=== PATIENT | female | born 1960 | race Caucasian/White ===

== ENCOUNTER 2018-10-03 23:15 | Emergency (ER) | payer MEDICAID ==
[~2018-10-03] VITALS: Ht 160 cm; Wt 99.8 kg
--- OUTSIDE RECORDS SUMMARY | 2018-10-03 23:21 | XMS REPORT ---
Author Author Migration, Doctor Organization [facility] Address Unknown Phone Unavailable Care Team Providers Care Treating Machine Operator Name Role Phone Migration, Doctor Unavailable Unavailable PROBLEMS Type Condition ICD9-CM Code PRB89-TJ Code Onset Dates Condition Status SNOMED Code Problem Other and unspecified hyperlipidemia E78.5 Active 04216024 Problem Obesity E66.9 Active 079284522 ALLERGIES No Information ENCOUNTERS Encounter Location Date Diagnosis [address] [address] August, [address] [address] Jun, [address] [address] Jun, [address] [address] Jun, [facility] [address] [place] [address] May, [facility] WALK IN [facility] [address] [place] [address] May, Cervicalgia M54.2 and BMI 40.0-44.9, adult Z68.41 [place] [address] [place] [address] Jul, [facility] [id number] [place] [address] Jul, [facility] [id number] [place] [address] Sep, [facility] [id number] [place] [address] Sep, [facility] [address] [address] Sep, [facility] [place] [facility] [address] [id number] [place] [address] Sep, [facility] [place] [facility] [address] [id number] [place] [address] Sep, [facility] [place] [facility] [address] [id number] [place] [address] Sep, [facility] [place] [facility] [address] [id number] [place] [address] Sep, [facility] [place] [facility] [address] [id number] [place] [address] Sep, [facility] [place] [facility] [address] [id number] [place] [address] Sep, [facility] [place] [facility] [address] [id number] [place] [address] Sep, [facility] [place] [facility] [address] [id number] [place] [address] Sep, [facility] [place] [facility] [address] [id number] [place] [address] Sep, [facility] [place] [facility] [address] [id number] [place] [address] Sep, [facility] [place] [facility] [address] [id number] [place] [address] Oct, [facility] [place] [facility] [address] [id number] [place] [address] Jul, [facility] [place] [facility] [address] [id number] [place] [address] 18 Jul, 2012 [facility] [place] [facility] [address] [id number] [place] [address] 17 Jul, 2012 [facility] [place] [facility] [address] [id number] [place] [address] 16 Jul, 2012 [facility] [place] [facility] [address] [id number] [place] [address] Jul, [facility] [address] [facility] [id number] [place] [address] Jul, [facility] [address] [facility] [id number] [place] [address] Jul, [facility] [address] [facility] [id number] [place] [address] Nov, IMMUNIZATIONS No Known Immunizations SOCIAL HISTORY Never Assessed REASON FOR VISIT [facility] PLAN OF CARE VITAL SIGNS MEDICATIONS Unknown Medications RESULTS No Results PROCEDURES No Known procedures INSTRUCTIONS MEDICATIONS ADMINISTERED No Known Medications MEDICAL (GENERAL) HISTORY Type Description Date Medical History colonic polyps Medical History hypertension Medical History retinal tear Surgical History hysterectomy 2016 Surgical History cholecystectomy 2016 Surgical History eye
--- OUTSIDE RECORDS SUMMARY | 2018-10-03 23:21 | XMS REPORT ---
Author Author SINA MEADE Organization [facility] Address [address] [place] [address] Care Team Providers Care Breaker Up Name Role Phone SINA MEADE Unavailable PROBLEMS Type Condition ICD9-CM Code CPL54-UU Code Onset Dates Condition Status SNOMED Code Problem Other and unspecified hyperlipidemia E78.5 Active 13810877 Problem Obesity E66.9 Active 491306720 ALLERGIES No Information ENCOUNTERS Encounter Location Date Diagnosis [address] [address] August, [address] [address] Jun, [address] [address] Jun, [address] [address] Jun, [facility] [address] [place] [address] May, [facility] [address] [place] [address] May, Cervicalgia M54.2 and BMI 40.0-44.9, adult Z68.41 [place] [address] [address] Jul, [facility] [address], [place] [address] Jul, [place] [address] [address] Sep, [facility] [address], [place] [address] Sep, [facility] [place] [facility] [address] [id number] [place] [address] Sep, [facility] [place] [facility] [address] [id number] [place] [address] Sep, [facility] [place] [facility] [address] [id number] [place] [address] Sep, [facility] [place] [facility] [address] [id number] [place] [address] Sep, [facility] [place] [facility] [address] [id number] [place] [address] Sep, [facility] [place] [facility] [address] [id number] [place] [address] Sep, [facility] [place] [facility] [address] [id number] [place] [address] Sep, [facility] [place] [facility] [address] [id number] [place] [address] Sep, [facility] [place] [facility] [address] [id number] [place] [address] Sep, [facility] [place] [facility] [address] [id number] [place] [address] Sep, [facility] [place] [facility] [address] [id number] [place] [address] Sep, [facility] [place] [facility] [address] [id number] [place] [address] Oct, [facility] [place] [facility] [address] [id number] [place] [address] 23 Jul, 2012 [facility] [place] [facility] [address] [id number] [place] [address] 18 Jul, 2012 [facility] [place] [facility] [address] [id number] [place] [address] 17 Jul, 2012 [facility] [place] [facility] [address] [id number] [place] [address] Jul, [facility] [address] [facility] [id number] [address] Jul, [facility] [address] [facility] [id number] [address] Jul, [facility] [address] [facility] [id number] [address] Jul, [facility] [address] [facility] [id number], [place] [address] Nov, IMMUNIZATIONS No Known Immunizations SOCIAL HISTORY Never Assessed REASON FOR VISIT PLAN OF CARE VITAL SIGNS MEDICATIONS Medication Instructions Dosage Frequency Start Date End Date Duration Status Diclofenac Sodium 75 MG Orally Twice a day 1 tablet with food or milk 12h Jun, 30 day(s) Active RESULTS No Results PROCEDURES No Known procedures INSTRUCTIONS MEDICATIONS ADMINISTERED No Known Medications MEDICAL (GENERAL) HISTORY Type Description Date Medical History colonic polyps Medical History hypertension Medical History retinal tear Surgical History hysterectomy 2016 Surgical History cholecystectomy 2016 Surgical History eye
--- OUTSIDE RECORDS SUMMARY | 2018-10-03 23:21 | XMS REPORT | Continuity of Care Document ---
Author Organization Unknown Address Unknown Allergies Active Description Code Type Severity Reaction Onset Reported/Identified Relationship to Patient Clinical Status Yes Prozac Drug Allergy 12/04/2011 Yes Prozac Drug Allergy N/A N/A 12/04/2011 Medications There is no data. Problems Date Dx Coded Attending Type Code Diagnosis Diagnosed By 12/04/2011 JACQUES JOHNSON DO 380.10 INFECTIVE OTITIS EXTERNA UNSPECIFIED 12/04/2011 JIGNA MADERA APRN 380.10 INFECTIVE OTITIS EXTERNA UNSPECIFIED 12/04/2011 JIGNA MADERA APRN 380.10 INFECTIVE OTITIS EXTERNA UNSPECIFIED 12/04/2011 JACQUES JOHNSON DO 380.10 INFECTIVE OTITIS EXTERNA UNSPECIFIED 08/05/2012 JACQUES JOHNSON DO 719.46 PAIN IN JOINT INVOLVING LOWER LEG 08/05/2012 JACQUES JOHNSON DO 724.2 LUMBAGO 08/05/2012 JIGNA MADERA APRN A 719.46 PAIN IN JOINT INVOLVING LOWER LEG 08/05/2012 JIGNA MADERA APRN A 724.2 LUMBAGO 08/05/2012 JIGNA MADERA APRN A 719.46 PAIN IN JOINT INVOLVING LOWER LEG 08/05/2012 JIGNA MADERA APRN A 724.2 LUMBAGO 08/05/2012 JACQUES JOHNSON DO 719.46 PAIN IN JOINT INVOLVING LOWER LEG 08/05/2012 JACQUES JOHNSON DO 724.2 LUMBAGO 08/08/2012 JIGNA MADERA APRN A 278.00 OBESITY 08/08/2012 JIGNA MADERA APRN A V73.81 HPV SCREENING 08/08/2012 JIGNA MADERA APRN A V76.10 BREAST CANCER SCREENING 08/08/2012 JIGNA MADERA APRN A V76.2 CERVICAL CANCER SCREENING (PAP SMEAR) 08/08/2012 JIGNA MADERA APRN A 278.00 OBESITY 08/08/2012 SABINE MADERA APRNIDI A V73.81 HPV SCREENING 08/08/2012 SABINE MADERA APRNIDI A V76.10 BREAST CANCER SCREENING 08/08/2012 SABINE MADERA APRNIDI A V76.2 CERVICAL CANCER SCREENING (PAP SMEAR) 08/08/2012 JACQUES JOHNSON DO K 278.00 OBESITY 08/08/2012 JACQUES JOHNSON DO K V73.81 HPV SCREENING 08/08/2012 JACQUES JOHNSON DO K V76.10 BREAST CANCER SCREENING 08/08/2012 DESIRE JOHNSON DOA K V76.2 CERVICAL CANCER SCREENING (PAP SMEAR) 11/27/2012 SANTY SWEENEY JIGNA A 789.03 ABDOMINAL PAIN RIGHT LOWER QUADRANT 11/27/2012 JACQUES JOHNSON DO K 789.03 ABDOMINAL PAIN RIGHT LOWER QUADRANT 10/09/2013 SANTY STEPHENSFelton JIGNA A 112.3 CANDIDIASIS OF SKIN AND NAILS 10/09/2013 SANTY STEPHENSFelton JIGNA A 788.39 OTHER URINARY INCONTINENCE 10/09/2013 SANTY SWEENEY JIGNA A V65.49 OTHER SPECIFIED COUNSELING 10/09/2013 SANTY SWEENEY JIGNA A V72.31 NUCLEAR WORKER TECHNICIAN EXAM, ROUTINE 10/09/2013 JACQUES JOHNSON DO K 112.3 CANDIDIASIS OF SKIN AND NAILS 10/09/2013 JACQUES JOHNSON DO K 788.39 OTHER URINARY INCONTINENCE 10/09/2013 DESIRE JOHNSON DOA K V65.49 OTHER SPECIFIED COUNSELING 10/09/2013 JACQUES JOHNSON DO K V72.31 NUCLEAR WORKER TECHNICIAN EXAM, ROUTINE 10/17/2013 JACQUES JOHNSON DO 272.4 DYSLIPIDEMIA 10/17/2013 JACQUES JOHNSON DO 729.5 PAIN IN LIMB 10/17/2013 JACQUES JOHNSON DO 782.1 RASH 10/17/2013 JACQUES JOHNSON DO K 789.00 ABDOMINAL PAIN UNSPECIFIED SITE 10/17/2013 JACQUES JOHNSON DO 924.3 CONTUSION OF TOE 10/17/2013 JACQUES JOHNSON DO V18.0 FAMILY HISTORY OF DIABETES MELLITUS 10/17/2013 DESIRE JOHNSON DOA K V70.0 ROUTINE GENERAL MEDICAL EXAMINATION AT A HEALTH CARE FACILITY Procedures Code [place] [address] MAMMOGRAM, SCREENING 08/08/2012 74983 PAP SMEAR 08/08/2012 Q0091 PAP SMEAR OBTAIN SMEAR 08/08/2012 76215 MAMMOGRAM, SCREENING 10/10/2013 57071 ROUTINE VENIPUNCTURE 10/17/2013 86294 A1C (IN-HOUSE) 10/17/2013 58656 CMP 10/17/2013 18228 URIC ACID 10/17/2013 4683851 GFR CALC (RESULT ONLY) 10/17/2013 57210 TSH 10/17/2013 99723 ROUTINE VENIPUNCTURE 10/20/2013 37450 LIPID PANEL 10/20/2013 Results Test Result Range LIPID PANEL - 08/28/18 11:54 CHOLESTEROL, TOTAL 182 mg/dL <200 HDL CHOLESTEROL 47 mg/dL >50 TRIGLYCERIDES 168 mg/dL <150 LDL-CHOLESTEROL 107 mg/dL (calc) NRG CHOL/HDLC RATIO 3.9 (calc) <5.0 NON HDL CHOLESTEROL 135 mg/dL (calc) <130 CMP - 08/28/18 11:54 GLUCOSE 88 mg/dL 65-99 UREA NITROGEN (BUN) 16 mg/dL 7-25 CREATININE 0.87 mg/dL 0.50-1.05 eGFR NON-AFR. CENTRAL AFRICAN 75 mL/min/1.73m2 > OR=60 eGFR 87 mL/min/1.73m2 > OR=60 BUN/CREATININE RATIO NOT APPLICABLE (calc) 6-22 SODIUM 139 mmol/L 135-146 POTASSIUM 3.8 mmol/L 3.5-5.3 CHLORIDE 103 mmol/L 98-110 CARBON DIOXIDE 28 mmol/L 20-32 CALCIUM 9.6 mg/dL 8.6-10.4 PROTEIN, TOTAL 6.6 g/dL 6.1-8.1 ALBUMIN 4.3 g/dL 3.6-5.1 GLOBULIN 2.3 g/dL (calc) 1.9-3.7 ALBUMIN/GLOBULIN RATIO 1.9 (calc) 1.0-2.5 BILIRUBIN, TOTAL 0.5 mg/dL 0.2-1.2 ALKALINE PHOSPHATASE 63 U/L 33-130 AST 16 U/L 10-35 ALT 14 U/L 6-29 Encounters ACCT No. Visit Date/Time Discharge Status Pt. Type Provider Facility Loc./Unit Complaint [id number] 08/28/2018 11:15:00 08/28/2018 23:59:59 [facility] Outpatient SINA MEADE [facility] [id number] 08/28/2018 11:15:00 Document Registration [id number] 10/20/2013 10:26:00 10/20/2013 23:59:59 [facility] Outpatient JACQUES JOHNSON DO [id number] 10/09/2013 14:42:00 10/09/2013 23:59:59 [facility] Outpatient JIGNA MADERA APRN [id number] 08/08/2012 10:24:00 08/08/2012 23:59:59 [facility] Outpatient JIGNA MADERA APRN [id number] 08/05/2012 10:28:00 08/05/2012 23:59:59 CLS Outpatient JACQUES JOHNSON DO
--- OUTSIDE RECORDS SUMMARY | 2018-10-03 23:21 | XMS REPORT ---
Author Author SINA MEADE Organization [facility] Address [address] [place] [address] Care Team Providers Care State Appellate Clerk Name Role Phone SINA MEADE Unavailable PROBLEMS Type Condition ICD9-CM Code DLN19-VK Code Onset Dates Condition Status SNOMED Code Problem Other and unspecified hyperlipidemia E78.5 Active 34773775 Problem Obesity E66.9 Active 669644506 ALLERGIES No Information ENCOUNTERS Encounter Location Date Diagnosis [address] [address] August, [address] [address] Jun, [address] [address] Jun, [address] [address] Jun, [facility] [address] [place] [address] May, [facility] WALK IN [facility] [address] [place] [address] May, Cervicalgia M54.2 and BMI 40.0-44.9, adult Z68.41 [place] [address] [address] Jul, [facility] [address] [address] Jul, [place] [address] [address] Sep, [facility] [address] [address] Sep, [facility] [place] [facility] [address] [id number] [place] [address] Sep, [facility] [place] [facility] [address] [id number] [place] [address] Sep, [facility] [place] [facility] [address] [id number] [place] [address] Sep, [facility] [place] [facility] [address] [id number] [place] [address] Sep, [facility] [place] [facility] [address] [id number] [place] [address] Sep, [facility] [place] [facility] [address] [id number] [place] [address] Sep, [facility] [place] [facility] [address] [id number] [place] [address] Sep, [facility] [place] [facility] [address] [id number] [place] [address] Sep, [facility] [place] [facility] [address] [id number] [place] [address] Sep, [facility] [place] [facility] [address] [id number] [place] [address] Sep, [facility] [place] [facility] [address] [id number] [place] [address] Sep, [facility] [place] [facility] [address] [id number] [place] [address] Oct, [facility] [place] [facility] [address] [id number] [place] [address] 23 Jul, 2012 [facility] [place] [facility] [address] [id number] [place] [address] 18 Jul, 2012 [facility] [place] [facility] [address] [id number] [place] [address] 17 Jul, 2012 [facility] [place] [facility] [address] [id number] [place] [address] Jul, [facility] [address] [facility] [id number] [address] Jul, [facility] [address] [facility] [id number] [place] [address] Jul, [facility] [address] [facility] [id number] [address] Jul, [facility] [address] [facility] [id number] [place] [address] Nov, IMMUNIZATIONS No Known Immunizations SOCIAL HISTORY Never Assessed REASON FOR VISIT Returning Your Call PLAN OF CARE VITAL SIGNS MEDICATIONS Unknown Medications RESULTS No Results PROCEDURES No Known procedures INSTRUCTIONS MEDICATIONS ADMINISTERED No Known Medications MEDICAL (GENERAL) HISTORY Type Description Date Medical History colonic polyps Medical History hypertension Medical History retinal tear Surgical History hysterectomy 2016 Surgical History cholecystectomy 2016 Surgical History eye
--- OUTSIDE RECORDS SUMMARY | 2018-10-03 23:21 | XMS REPORT ---
Author Author Migration, Doctor Organization [facility] Address Unknown Phone Unavailable Care Team Providers Care Prototype Deicer Assembler Name Role Phone Migration, Doctor Unavailable Unavailable PROBLEMS Type Condition ICD9-CM Code WHK09-HE Code Onset Dates Condition Status SNOMED Code Problem Pure hypercholesterolemia E78.00 Active 527755808 Problem Essential (primary) hypertension I10 Active 11839519 Problem Other and unspecified hyperlipidemia E78.5 Active 46809849 Problem Obesity E66.9 Active 026418738 ALLERGIES No Information ENCOUNTERS Encounter Location Date Diagnosis [address] [address] Feb, [address] [address] August, Essential (primary) hypertension I10 ; Pure hypercholesterolemia E78.00 and Morbid obesity E66.[address] [address] Jun, [address] [address] Jun, [address] [address] Jun, [facility] [address] [place] [address] May, [facility] [address] [place] [address] May, Cervicalgia M54.2 and BMI 40.0-44.9, adult Z68.41 [facility] [id number], [place] [address] Jul, [facility] [address], [place] [address] Jul, [facility] [id number], [place] [address] Sep, [facility] [place] [facility] [address] [id number] [place] [address] Sep, [facility] [place] [facility] [address] [id number] [place] [address] Sep, [facility] [place] [facility] [address] [id number] [place] [address] Sep, [facility] [place] [facility] [address] [id number] [place] [address] Sep, [facility] [place] [facility] [address] [id number] [place] [address] Sep, [facility] [place] [facility] [address] [id number] [place] [address] Sep, [facility] [place] [facility] [address] [id number] [place] [address] Sep, [facility] [place] [facility] [address] [id number] [place] [address] Sep, [facility] [place] [facility] [address] [id number] [place] [address] Sep, [facility] [place] [facility] [address] [id number] [place] [address] Sep, [facility] [place] [facility] [address] [id number] [place] [address] Sep, [facility] [place] [facility] [address] [id number] [place] [address] Sep, [facility] [place] [facility] [address] [id number] [place] [address] Oct, [facility] [place] [facility] [address] [id number] [place] [address] Jul, [facility] [place] [facility] [address] [id number] [place] [address] Jul, [facility] [place] [facility] [address] [id number] [place] [address] Jul, [facility] [address] [facility] [id number], [place] [address] Jul, [facility] [address] [facility] [id number], [place] [address] Jul, [facility] [address] [facility] [id number], [place] [address] Jul, [facility] [address] [facility] [id number], [place] [address] Jul, [facility] [address] [facility] [id number], [place] [address] Nov, IMMUNIZATIONS No Known Immunizations SOCIAL HISTORY Never Assessed REASON FOR VISIT [facility] [place] OF CARE VITAL SIGNS MEDICATIONS Unknown Medications RESULTS No Results PROCEDURES No Known procedures INSTRUCTIONS MEDICATIONS ADMINISTERED No Known Medications MEDICAL (GENERAL) HISTORY Type Description Date Medical History colonic polyps Medical History hypertension Medical History retinal tear Medical History mammo 2018 Medical History pap? Surgical History total hysterectomy for non-cancerous reason 2016 Surgical History cholecystectomy 2016 Surgical History eye Hospitalization History Surgery(s) only Hospitalization History childbirth only
[2018-10-03] MEDS ORDERED: TETRACAINE 0.5% OPHTH SOLN 4 ML BTL (SINGLE DOSE ONLY) OP ONE (23:45)
[2018-10-04 00:29] VITALS: BP 148/84
--- NOTE | 2018-10-04 00:32 | ED EENT ---
History of Present Illness General Chief Complaint: Eye Problems Stated Complaint: SPOTS IN LT EYE Nursing Triage Note: PT. WAS BROUGHT IN BY EMS AND TAKEN TO ER 5 WITH THE C/O HAVE SPOTS IN HER LEFT EYE THAT ARE LARGE BLACK FLOATERS AND ADRIANNE GRAIN LOOKING THAT STARTED ABOUT 2 HOURS AGO. PT. 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 She presents with concern for acute onset of multiple large dark floaters to her left temporal visual field, left eye only, with onset about 2 hours prior to arrival, quite suddenly. Associated sensation of "adrianne texture" to the central visual field in that eye. Patient retains vision in the affected left eye and vision is intact to finger counting in all visual butts of bilateral eyes. Patient denies any injury or trauma. She denies fevers, nausea or vomiting, headache, focal weakness, numbness, tingling, neck stiffness, shortness of breath or chest pain. She denies any eye pain of any kind. Allergies and Home Medications Allergies Coded Allergies: No Known Drug Allergies (Unverified , 10/03/18) Patient Home Medication List Home Medication List Reviewed: Yes Review of Systems Review of Systems Constitutional: see HPI All Other Systems Reviewed Negative Unless Noted: Yes Past Hfvupck-Dtjscp-Kddzdr Hx Past Med/Social Hx: Reviewed Nursing Past Med/Soc Hx Patient Social History Recent Foreign Travel: No Contact w/Someone Who Travel: No Recent Infectious Disease Expo: No Physical Abuse: No Sexual Abuse: No Mistreated: No Fear: No Family Medical History Reviewed Nursing Family Hx Physical Exam Vital Signs Vital Signs - First Documented 10/03/18 23:20 Temp 97.8 Pulse 108 Resp 24 B/P (MAP) 151/94 (113) O2 Delivery Room Air Height, Weight, BMI Height: 5'3.00" Weight: 220lbs. oz. 99.612241ot; BMI Method:Stated General Appearance: no apparent distress The patient is an older female who appears nontoxic and in no acute distress. Head is normocephalic and atraumatic. Neck is supple and nontender. Oropharynx is moist. Evaluation of the eyes is remarkable for tonometry with intraocular pressure of 15 OD and 18 OS (average pressures), acuities 20/200 OD (chronic) and 20/70 OS, slit lamp examination with no significant abnormalities grossly evident OD or OS, all visual butts intact to finger counting in bilateral eyes. Lungs are clear to auscultation at all stations. There is normal S1 and S2 without rubs or gallops and capillary refill is appropriate, less 2 seconds globally. Abdomen is soft, nontender and nondistended. Skin is warm and dry without cyanosis, clubbing or edema. Psychiatrically, the patient demonstrated appropriate mood and affect and is alert. From a neurologic standpoint, cranial nerves II through XII are intact and there are no lateralizing deficits noted. Speech is normal. Leg which is normal. Coordination is normal. There is no dysmetria with orgjdq-ut-bcyk bilaterally. Strength is 5 out of 5 in all joints of bilateral upper and lower extremity. Sensation is intact to light touch in bilateral upper and lower extremities. Patient ambulates with a narrow, steady gait in the emergency department. She is alert and oriented 4. Progress/Results/Core Measures Results/Orders My Orders Orders - ALFRED LEON MD Tetracaine 0.5% Ophth Tara Sdv (Tetracai (10/03/18 23:45) Medications Given in ED Current Medications Medications Dose Ordered Sig/Spike Route Start Time Stop Time Status Last Admin Dose Admin Tetracaine HCl 1 OR 2 DROPS INTO AFFEC... ONCE ONCE OP 10/03/18 23:45 10/03/18 23:46 DC 10/03/18 23:41 0.5 ML Vital Signs/I&O 10/03/18 23:20 Temp 97.8 Pulse 108 Resp 24 B/P (MAP) 151/94 (113) O2 Delivery Room Air Blood Pressure Mean: 113 Progress Progress Note : Time: 00:36 Progress Note Clinical examination reassuring. 57-year-old female with history of a partial retinal detachment OD who presents with new painless temporal visual field floaters OS. Visual butts intact in all quadrants OU and no other significant abnormalities noted on eye exam. Case is discussed with Dr. Soniya Levi who is familiar with this patient as he has seen her in the clinic previously. He advises no emergency requiring EMS transport to at this time and recommends that the patient follow-up later this morning in ophthalmology clinic at [facility] and that she be NPO beginning at 6 AM to facilitate a possible laser procedure to address her issue. Patient is comfortable with this plan. We will discharge home at this time. She is counseled to return immediately if symptoms worsen or if other new symptoms of concern develop. All questions are answered. Departure Impression Primary Impression: Vitreous floaters of left eye Disposition: HOME, SELF-CARE Condition: Stable Departure-Patient Inst. Referrals: KIET INFANTE (PCP) Primary Care Physician Patient Instructions: Floaters in the Eye Add. Discharge Instructions: Please follow up in the [facility] ophthalmology clinic with Dr. Soniya Levi later this morning as discussed. You should eat and drink nothing by mouth after 6AM to allow for possible repair procedure in the clinic. Return immediately to the emergency department with worsened symptoms or other new concerns. ALFRED LEON MD Oct 04, 2018 00:32
== END 2018-10-04 00:46 | disposition home or self-care (01) ==
LOC: EDUNIT# 23:15 → ER FS 23:17
DX: H43.392 Other vitreous opacities, left eye (principal); I10 Essential (primary) hypertension; E78.5 Hyperlipidemia, unspecified; Z86.69 Personal history of other diseases of the nervous system and sense organs
CPT/HCPCS: 99283

== ENCOUNTER → 2019-09-02 | Outpatient (CLI) | payer MEDICAID ==
[2019-09-02 13:13] LABS: BILIRUBIN,TOTAL 0.3 MG/DL (0.1-1.0); BUN/CREATININE RATIO 21; CALCIUM 10.1 MG/DL (8.5-10.1); CARBON DIOXIDE 27 MMOL/L (21-32); CHLORIDE 102 MMOL/L (98-107); CREATININE SERUM 0.76 MG/DL (0.60-1.30); GFR ESTIMATED > 60; GLUCOSE 104 MG/DL (70-105); POTASSIUM 4.1 MMOL/L (3.6-5.0); SODIUM 141 MMOL/L (135-145)
[2019-09-02 13:14] LABS: ALANINE AMINOTRANSFERASE 18 U/L (0-55); ALBUMIN 4.4 GM/DL (3.2-4.5); ALKALINE PHOSPHATASE 71 U/L (40-136)
[2019-09-02 15:05] LABS: TRIGLYCERIDES 209 MG/DL (<150); VLDL CHOLESTEROL 42 MG/DL (5-40)
[2019-09-02 15:10] LABS: CHOLESTEROL 189 MG/DL (< 200)
[2019-09-02 15:11] LABS: HDL CHOLESTEROL 49 MG/DL (40-60)
== END ==
LOC: LAB FS 12:21
PROVIDERS: ATTEND Family Medicine
DX: E78.2 Mixed hyperlipidemia (principal); R73.09 Other abnormal glucose
CPT/HCPCS: 36415; 80053; 80061; 83036

== ENCOUNTER → 2020-07-09 | Outpatient (CLI) | payer MEDICAID ==
[2020-07-09 10:17] LABS: CARBON DIOXIDE 26 MMOL/L (21-32); CHLORIDE 105 MMOL/L (98-107); POTASSIUM 4.7 MMOL/L (3.6-5.0); SODIUM 145 MMOL/L (135-145)
[2020-07-09 10:18] LABS: ALANINE AMINOTRANSFERASE 37 U/L (0-55); ALBUMIN 4.6 GM/DL (3.2-4.5); ALKALINE PHOSPHATASE 87 U/L (40-136); BILIRUBIN,TOTAL 0.3 MG/DL (0.1-1.0); BUN/CREATININE RATIO 24; CALCIUM 10.4 MG/DL (8.5-10.1); CREATININE SERUM 0.86 MG/DL (0.60-1.30); GFR ESTIMATED > 60; GLUCOSE 116 MG/DL (70-105); TOTAL PROTEIN 7.4 GM/DL (6.4-8.2)
[2020-07-09 15:06] LABS: CHOLESTEROL 174 MG/DL (< 200); HDL CHOLESTEROL 41 MG/DL (40-60); TRIGLYCERIDES 155 MG/DL (<150); VLDL CHOLESTEROL 31 MG/DL (5-40)
== END ==
LOC: LAB FS 08:21
PROVIDERS: ATTEND Family Medicine
DX: Z13.1 Encounter for screening for diabetes mellitus (principal); I10 Essential (primary) hypertension
CPT/HCPCS: 36415; 80053; 80061; 83036

== ENCOUNTER → 2021-01-07 | Outpatient (CLI) | payer MEDICAID ==
[2021-01-07 13:09] LABS: POTASSIUM 3.8 MMOL/L (3.6-5.0)
[2021-01-07 13:10] LABS: ALBUMIN 4.5 GM/DL (3.2-4.5); BILIRUBIN,TOTAL 0.6 MG/DL (0.1-1.0); CALCIUM 9.6 MG/DL (8.5-10.1); CREATININE SERUM 0.75 MG/DL (0.60-1.30); TOTAL PROTEIN 7.5 GM/DL (6.4-8.2)
== END ==
LOC: LAB FS 12:22
PROVIDERS: ATTEND Family Medicine
DX: E78.2 Mixed hyperlipidemia (principal); R89.8 Other abnormal findings in specimens from other organs, systems and tissues
CPT/HCPCS: 36415; 80053; 80061; 83036

== ENCOUNTER → 2021-07-04 | Outpatient (CLI) | payer MEDICAID ==
[2021-07-04 12:10] LABS: BILIRUBIN,TOTAL 0.3 MG/DL (0.1-1.0); CALCIUM 9.8 MG/DL (8.5-10.1); CREATININE SERUM 0.73 MG/DL (0.60-1.30); POTASSIUM 4.2 MMOL/L (3.6-5.0)
[2021-07-04 12:11] LABS: ALBUMIN 4.3 GM/DL (3.2-4.5); TOTAL PROTEIN 7.1 GM/DL (6.4-8.2)
== END ==
LOC: LAB FS 11:39
PROVIDERS: ATTEND Registered Nurse Emergency
DX: I10 Essential (primary) hypertension (principal); E78.2 Mixed hyperlipidemia
CPT/HCPCS: 36415; 80053; 80061

== ENCOUNTER → 2021-07-28 | Outpatient (CLI) | payer MEDICAID | LOC: ORTHO 13:35 | PROVIDERS: ATTEND Orthopaedic Surgery | DX: G56.03 Carpal tunnel syndrome, bilateral upper limbs (principal) ==

== ENCOUNTER 2021-09-09 05:28 | Outpatient (CLI) | payer MEDICAID ==
[~2021-09-09] VITALS: Ht 160.3 cm; Wt 118.0 kg
[2021-09-13] MEDS ORDERED: IBUP-1773 PO (10:12)
[2021-09-13] MEDS ORDERED: MULT-1136 PO (10:12)
[2021-09-13] MEDS ORDERED: LISI40TA9 PO (10:12)
[2021-09-13] MEDS ORDERED: OMG1KC PO (10:12)
[2021-09-13] MEDS ORDERED: EVEP1CAP PO (10:20)
[2021-09-13] MEDS ORDERED: BIOT1TAB PO (10:20)
[2021-09-13] MEDS ORDERED: ATOR20TA66 PO (10:20)
[2021-09-13] MEDS ORDERED: VITA1CAP16 PO (10:20)
== END 2021-09-13 10:28 | disposition home or self-care (01) ==
LOC: PREOP 05:28
PROVIDERS: ATTEND Orthopaedic Surgery
DX: Z01.818 Encounter for other preprocedural examination (principal)

== ENCOUNTER 2021-09-16 05:57 | Day surgery (SDC) | payer MEDICAID ==
[~2021-09-16] VITALS: Ht 170 cm; Wt 118.0 kg
[2021-09-16] VITALS (9 sets, daily range): BP systolic 108–142; BP diastolic 49–91
[~2021-09-16 05:57] MED LIST: ATOR20TA66 PO; BIOT1TAB PO; EVEP1CAP PO; IBUP-1773 PO; LISI40TA9 PO; MULT-1136 PO; OMG1KC PO; VITA1CAP16 PO
[2021-09-16] MEDS ORDERED: LACTATED RINGERS 1,000 ML IV PRN (06:15)
[2021-09-16] MEDS ORDERED: ceFAZolin 2 GM IV Premixed 50 ML IV ONE (06:15)
[2021-09-16] MEDS ORDERED: PROPOFOL INJECTION 50 ML IV ONE (06:45)
[2021-09-16] MEDS ORDERED: ONDANSETRON 4 MG/2 ML (SDV) Z0FRAN ONE (06:45)
[2021-09-16] MEDS ORDERED: fentaNYL INJ 100 MCG/2 ML AMP ONE (06:45)
[2021-09-16] MEDS ORDERED: MIDAZOLAM 2 MG/2 ML (VERSED) VIAL ONE (06:46)
[2021-09-16] MEDS ORDERED: BUPIVACAINE 0.5% 30 ML (SENSORCAINE) VIAL ONE (06:59)
[2021-09-16] MEDS ORDERED: NEO/POLY/BAC (NEOSPORIN) OINT 15 GM TUBE ONE (06:59)
--- NOTE | 2021-09-16 07:34 | Operative Report - Ortho ---
Operative Report Surgeon (s)/City Director (s) Surgeon VIRGIE WINSTON MD City Director n/a Pre-Operative Diagnosis RIGHT CARPAL TUNNEL SYNDROME Post-Operative Diagnosis same Operative Report Date of Procedure: September 16, 2021 Name of Procedure Performed: Right Carpal Tunnel Release Description & Findings After obtaining informed consent and marking the patient in the preoperative holding area, the patient was administered IV antibiotics. The patient was taken to the operating room and vaishnavi block anesthesia was induced. The right upper extremity was prepped and draped in the usual sterile fashion. Surgical timeout was taken. Incision was made just ulnar to the thenar crease. Blunt dissection was carried down to the longitudinal fibers of the palmar fascia; these were divided in line revealing the transverse carpal ligament. Beginning distally and working proximally, carpal tunnel release was performed. Nerve protector was placed and release was completed back to the level of the forearm fascia. Probe was inserted and release was palpably complete. Tourniquet was dropped and hemostasis was achieved. Wound was closed with 4-0 nylon. Wound was dressed with antibiotic ointment, xeroform, 4x4s, arlette, ABD for soft splint, cast padding, and REAL wrap. Patient tolerated the proceudre well and was stable to the recovery room. Anesthesia Type Vaishnavi block Estimated Blood Loss minimal Specimen(s) collected/removed None VIRGIE WINSTON MD September 16, 2021 07:34
[2021-09-16] MEDS ORDERED: LIDOCAINE PF 2% 5 ML (XYLOCAINE) VIAL ONE (07:42)
[2021-09-16] MEDS ORDERED: LIDOCAINE PF 0.5% 50 ML (XYLOCAINE) VIAL ONE (07:42)
[2021-09-16] MEDS ORDERED: OXC5T PO (08:10)
--- NOTE | 2021-09-16 08:19 | Anesthesia-General Post-Op ---
MAC Patient Condition Mental Status/LOC: Same as Preop Cardiovascular: Satisfactory Nausea/Vomiting: Absent Respiratory: Satisfactory Pain: Controlled Complications: Absent Post Op Complications Complications None Follow Up Care/Instructions Patient Instructions None needed. Anesthesiology Discharge Order Discharge Order Patient is doing well, no complaints, stable vital signs, no apparent adverse anesthesia problems. No complications reported per nursing. TIMMY GOMEZ CRNA September 16, 2021 08:19
[2021-09-16] MEDS ORDERED: morphine INJ 10 MG/ML 1ML (SYR OR VIAL) IVP ONE (08:30)
[2021-09-16] MEDS ORDERED: ONDANSETRON 4 MG/2 ML (SDV) Z0FRAN IVP PRN (08:30)
== END 2021-09-16 09:51 | disposition home or self-care (01) ==
LOC: SDC 05:57
PROVIDERS: ATTEND Orthopaedic Surgery
DX: G56.01 Carpal tunnel syndrome, right upper limb (principal); E66.9 Obesity, unspecified; Z68.41 Body mass index [BMI] 40.0-44.9, adult
CPT/HCPCS: 87081

== ENCOUNTER → 2021-09-29 | Outpatient (CLI) | payer MEDICAID ==
[~2021-09-29] MED LIST changes: +OXC5T PO
== END ==
LOC: ORTHO 14:33
PROVIDERS: ATTEND Orthopaedic Surgery
DX: Z47.89 Encounter for other orthopedic aftercare (principal); I10 Essential (primary) hypertension; E78.2 Mixed hyperlipidemia; E66.01 Morbid (severe) obesity due to excess calories; Z98.890 Other specified postprocedural states

== ENCOUNTER → 2021-10-27 | Outpatient (CLI) | payer MEDICAID | LOC: ORTHO 15:30 | PROVIDERS: ATTEND Orthopaedic Surgery | DX: Z47.89 Encounter for other orthopedic aftercare (principal); I10 Essential (primary) hypertension; E78.2 Mixed hyperlipidemia; E66.01 Morbid (severe) obesity due to excess calories; Z98.890 Other specified postprocedural states ==

== ENCOUNTER → 2021-12-29 | Outpatient (CLI) | payer MEDICAID | LOC: ORTHO 14:04 | PROVIDERS: ATTEND Orthopaedic Surgery | DX: G56.02 Carpal tunnel syndrome, left upper limb (principal); I10 Essential (primary) hypertension; E78.2 Mixed hyperlipidemia; E66.01 Morbid (severe) obesity due to excess calories ==

== ENCOUNTER → 2021-12-29 | Outpatient (CLI) | payer MEDICAID ==
[2021-12-29 09:50] LABS: ALBUMIN 4.4 GM/DL (3.2-4.5); BILIRUBIN,TOTAL 0.2 MG/DL (0.1-1.0); CALCIUM 9.9 MG/DL (8.5-10.1); CREATININE SERUM 0.74 MG/DL (0.60-1.30); POTASSIUM 4.1 MMOL/L (3.6-5.0); TOTAL PROTEIN 7.2 GM/DL (6.4-8.2)
== END ==
LOC: LAB FS 08:36
PROVIDERS: ATTEND Family Medicine
DX: Z12.11 Encounter for screening for malignant neoplasm of colon (principal); Z12.31 Encounter for screening mammogram for malignant neoplasm of breast; E78.5 Hyperlipidemia, unspecified; I10 Essential (primary) hypertension; G56.01 Carpal tunnel syndrome, right upper limb
CPT/HCPCS: 36415; 80053; 80061

== ENCOUNTER 2022-03-10 06:46 | Day surgery (SDC) | payer MEDICAID ==
[2022-03-10] VITALS (8 sets, daily range): BP systolic 96–134; BP diastolic 50–93
[~2022-03-10] VITALS: Ht 160 cm; Wt 118.0 kg
[~2022-03-10 06:46] MED LIST changes: +ANTI1CAP5 PO; +ASPI-999 PO; +BLAC160C PO; +CETI10CA PO; +LUTE6TAB PO
[2022-03-10] MEDS ORDERED: LISI1TAB46 PO (07:06)
[2022-03-10] MEDS ORDERED: ceFAZolin INJECTION 2,000 MG in NS (IVPB) 50 ML IV ONE (07:15)
[2022-03-10] MEDS ORDERED: LACTATED RINGERS 1,000 ML IV PRN (07:15)
[2022-03-10] MEDS ORDERED: PROPOFOL INJECTION 50 ML IV ONE (08:24)
[2022-03-10] MEDS ORDERED: fentaNYL INJ 100 MCG/2 ML AMP ONE (08:24)
[2022-03-10] MEDS ORDERED: MIDAZOLAM 2 MG/2 ML (VERSED) VIAL ONE (08:25)
[2022-03-10] MEDS ORDERED: NEO/POLY/BAC (NEOSPORIN) OINT 15 GM TUBE ONE (08:42)
[2022-03-10] MEDS ORDERED: BUPIVACAINE 0.5% 30 ML (SENSORCAINE) VIAL ONE (08:42)
[2022-03-10] MEDS ORDERED: LIDOCAINE PF 0.5% 50 ML (XYLOCAINE) VIAL ONE (09:07)
--- NOTE | 2022-03-10 10:08 | Operative Report - Ortho ---
Operative Report Surgeon (s)/Crane Rigger (s) Surgeon VIRGIE WINSTON MD Crane Rigger n/a Pre-Operative Diagnosis LEFT CARPAL TUNNEL SYNDROME Post-Operative Diagnosis same Operative Report Date of Procedure: Mar 10, 2022 Name of Procedure Performed: Left Carpal Tunnel Release Description & Findings After obtaining informed consent and marking the patient in the preoperative holding area, the patient was administered IV antibiotics. The patient was t aken to the operating room and vaishnavi block anesthesia was induced. The left upper extremity was prepped and draped in the usual sterile fashion. Surgical timeout was taken. Incision was made just ulnar to the thenar crease. Blunt dissection was carried down to the longitudinal fibers of the palmar fascia; these were divided in line revealing the transverse carpal ligament. Beginning distally and working proximally, carpal tunnel release was performed. Nerve protector was placed and release was completed back to the level of the forearm fascia. Probe was inserted and release was palpably complete. Tourniquet was dropped and hemostasis was achieved. Wound was closed with 4-0 nylon. Wound was dressed with antibiotic ointment, xeroform, 4x4s, arlette, ABD for soft splint, cast padding, and REAL wrap. Patient tolerated the proceudre well and was stable to the recovery room. Anesthesia Type Vaishnavi block Estimated Blood Loss minimal Specimen(s) collected/removed None VIRGIE WINSTON MD Mar 10, 2022 10:08
[2022-03-10] MEDS ORDERED: OXC5T PO (10:11)
[2022-03-10] MEDS ORDERED: PROMETHAZINE INJ 25 MG/ML (PHENERGAN) AMP IVP ONE (10:15)
[2022-03-10] MEDS ORDERED: ONDANSETRON 4 MG/2 ML (SDV) Z0FRAN IVP PRN (10:15)
[2022-03-10] MEDS ORDERED: morphine INJ 10 MG/ML 1ML (SYR OR VIAL) IVP ONE (10:15)
--- NOTE | 2022-03-10 11:04 | Anesthesia-General Post-Op ---
MAC Patient Condition Mental Status/LOC: Same as Preop Cardiovascular: Satisfactory Nausea/Vomiting: Absent Respiratory: Satisfactory Pain: Controlled Complications: Absent Post Op Complications Complications None Follow Up Care/Instructions Patient Instructions None needed. Anesthesiology Discharge Order Discharge Order Patient is doing well, no complaints, stable vital signs, no apparent adverse anesthesia problems. No complications reported per nursing. VIRGIE DAVE CRNA Mar 10, 2022 11:03
== END 2022-03-10 11:55 | disposition home or self-care (01) ==
LOC: SDC 06:46
PROVIDERS: ATTEND Orthopaedic Surgery
DX: G56.02 Carpal tunnel syndrome, left upper limb (principal); E66.9 Obesity, unspecified; Z68.42 Body mass index [BMI] 45.0-49.9, adult; Z87.891 Personal history of nicotine dependence
CPT/HCPCS: 87081

== ENCOUNTER → 2022-03-28 | Outpatient (CLI) | payer MEDICAID ==
[~2022-03-28] MED LIST changes: +LISI1TAB46 PO
== END ==
LOC: ORTHO 13:49
PROVIDERS: ATTEND Orthopaedic Surgery
DX: Z47.89 Encounter for other orthopedic aftercare (principal)

== ENCOUNTER → 2022-05-04 | Outpatient (CLI) | payer MEDICAID | LOC: ORTHO 13:33 | PROVIDERS: ATTEND Orthopaedic Surgery | DX: Z09 Encounter for follow-up examination after completed treatment for conditions other than malignant neoplasm (principal) ==

== ENCOUNTER → 2022-06-29 | Outpatient (CLI) | payer MEDICAID ==
--- NOTE | 2022-06-29 13:36 | Diagnostic Imaging Report ---
INDICATION: Pain of right shoulder joint. COMPARISON: None. FINDINGS: Three views of the right shoulder were obtained. There is no fracture, dislocation, or other acute bony abnormality identified. The soft tissues appear unremarkable. No radiopaque foreign body is identified. The visualized portions of the right lung are clear. IMPRESSION: No acute fractures or dislocations of the right shoulder. Dictated by: Dictated on workstation # [id number]
== END ==
LOC: ORTHO 11:23
PROVIDERS: ATTEND Orthopaedic Surgery
DX: M25.511 Pain in right shoulder (principal)
CPT/HCPCS: 73030; G0463; 99213

== ENCOUNTER → 2022-08-10 | Outpatient (CLI) | payer MEDICAID | LOC: ORTHO 10:22 | PROVIDERS: ATTEND Orthopaedic Surgery | DX: M75.51 Bursitis of right shoulder (principal) | CPT/HCPCS: 99213 ==